=== PATIENT | male | born 1945 | race American Indian/Alaskan Native ===

== ENCOUNTER 2017-10-07 09:35 | Outpatient (CLI) | payer BC ==
[2017-10-07 10:04] LABS: Blood Urea Nitrogen 28 mg/dL (9-20)
--- NOTE | 2017-10-07 11:22 | Cat Scan Report ---
CT ABDOMEN AND PELVIS WITHOUT CONTRAST INDICATION: Gross hematuria. COMPARISON: 10/29/2015 CT. FINDINGS: Noncontrast abdomen and pelvis CT performed. LUNG BASES: Stable 3 mm peripheral right lower lobe calcified granuloma, axial image 28, series 2. Stable heart size. Nonspecific distal esophageal wall prominence/thickening, not excluded for gastroesophageal reflux and/or hiatal hernia, amongst others. ABDOMEN: Please note that sensitivity to detect small visceral lesions is limited due to the absence of intravenous or oral contrast. Stable cholecystectomy clips and colonic diverticulosis. Grossly unremarkable unenhanced liver, spleen, pancreas, adrenals, nonaneurysmal abdominal aorta with few atherosclerotic calcifications, IVC and non-hydronephrotic kidneys. Slight mesenteric root haziness/"silvia mesentery" with few small, subcentimeter mesenteric and retroperitoneal lymph nodes again noted. Nonopacified GI tract evaluation limited, though grossly nonobstructive. Normal appendix. No ascites. PELVIS: Approximately 5.8 cm AP x 5.2 cm transverse prostate creating an impression at the bladder base may be correlated for clinically and with PSA. Grossly unremarkable urinary bladder and the rectosigmoid. Non-opacified urinary bladder suboptimally distended and assessed. No free fluid or definite significant adenopathy. Approximately 2.6 cm fat-containing left inguinal hernia again noted. Demineralized bones with slight levoscoliosis apex about L3. Mild multilevel spinal degenerative spurring. Bilateral SI joint degenerative changes with bony bridging on the left. CONCLUSION: Enlarged prostate and various other stable findings, as described. No radiopaque calculi noted. Please correlate. Thank you for the opportunity to participate in this patient's care.
== END 2017-10-07 09:36 | disposition home or self-care (01) ==
LOC: CT 09:35
PROVIDERS: ATTEND Urology
DX: R31.0 Gross hematuria (principal); I10 Essential (primary) hypertension
CPT/HCPCS: 36415; 74176; 82565; 84520

== ENCOUNTER 2018-10-05 13:11 | Outpatient (CLI) | payer BC ==
[2018-10-05 13:51] LABS: Blood Urea Nitrogen 26 mg/dL (9-20)
--- NOTE | 2018-10-05 14:44 | Cat Scan Report ---
CTA CHEST: HISTORY: Rib pain on left side, cough, painful respiration. COMPARISON: none. TECHNIQUE: Helical CT in 1.25mm intervals following IV contrast. Pulmonary embolus protocol. Sagittal and coronal reformatted images. Rotational MIP images. FINDINGS: Contrast bolus is satisfactory. No pulmonary embolus is identified. Thyroid gland: Normal. Tracheobronchial tree: Normal. Esophagus: Normal. Heart: Borderline to mild cardiomegaly. Pericardium: Normal. Mediastinum: Normal. Lung Dominguez: Normal. Pleural Spaces: Normal. Musculoskeletal: Intact. Mild thoracic spondylosis. No left rib deformity is detected. IMPRESSION: No evidence for pulmonary embolus. Borderline to mild cardiomegaly.
== END 2018-10-05 13:12 | disposition home or self-care (01) ==
LOC: CT 13:11
PROVIDERS: ATTEND Physician Assistant Medical
DX: R07.81 Pleurodynia (principal); R07.1 Chest pain on breathing; R05 Cough; M47.814 Spondylosis without myelopathy or radiculopathy, thoracic region; I10 Essential (primary) hypertension; Z78.9 Other specified health status
CPT/HCPCS: 36415; 71275; 82565; 84520; Q9967